=== PATIENT | female | born 1985 | race Caucasian/White ===

== ENCOUNTER → 2019-04-04 | Outpatient (CLI) | payer OTHER ==
[2019-04-04 07:36] LABS: BASO % 0.2 % (0.0-1.0); EOS # 0.1 10^3/uL (0.0-0.5); EOS % 2.4 % (0.0-3.0); HEMATOCRIT 39.5 % (36.0-47.0); HEMOGLOBIN 13.2 g/dl (12.0-15.5); LYMPH # 1.3 10^3/uL (1.5-5.0); LYMPH % 28.2 % (24.0-44.0); MEAN CORPUSCULAR HEMOGLOBIN 30.9 pg (27.0-33.0); MEAN CORPUSCULAR HGB CONC 33.4 g/dl (32.0-36.5); MEAN CORPUSCULAR VOLUME 92.5 fl (80.0-96.0); MONO # 0.4 10^3/uL (0.0-0.8); MONO % 7.8 % (0.0-5.0); NEUTROPHILS # 2.8 10^3/uL (1.5-8.5); NEUTROPHILS % 61.2 % (36.0-66.0); PLATELET COUNT, AUTOMATED 295 10^3/uL (150-450); RED BLOOD COUNT 4.27 10^6/uL (4.00-5.40); WHITE BLOOD COUNT 4.5 10^3/uL (4.0-10.0)
[2019-04-04 07:53] LABS: HEMOGLOBIN A1c 5.7 %
[2019-04-04 08:17] LABS: ALBUMIN 4.1 GM/DL (3.2-5.2); ALT/SGPT 25 U/L (12-78); BILIRUBIN,TOTAL 0.4 MG/DL (0.2-1.0); BLOOD UREA NITROGEN 11 MG/DL (7-18); CALCIUM LEVEL 8.7 MG/DL (8.5-10.1); CARBON DIOXIDE LEVEL 26 MEQ/L (21-32); CHLORIDE LEVEL 108 MEQ/L (98-107); CHOLESTEROL LEVEL 170 MG/DL (<200); CHOLESTEROL RISK RATIO 2.698 (<5); CREATININE FOR GFR 0.84 MG/DL (0.55-1.30); FREE T4 0.83 NG/DL (0.76-1.46); GLOMERULAR FILTRATION RATE > 60.0 (>60); GLUCOSE, FASTING 94 MG/DL (70-100); HDL CHOLESTEROL 63 MG/DL (>40); LDL CHOLESTEROL 95 MG/DL (<100); NON-HDL-C 107 MG/DL; POTASSIUM SERUM 4.3 MEQ/L (3.5-5.1); SODIUM LEVEL 139 MEQ/L (136-145); TOTAL PROTEIN 7.4 GM/DL (6.4-8.2); TRIGLYCERIDES LEVEL 61 MG/DL (<150)
== END ==
LOC: M LAB 07:08
PROVIDERS: ATTEND Physician Assistant
DX: Z13.29 Encounter for screening for other suspected endocrine disorder (principal)

== ENCOUNTER → 2019-11-05 | Outpatient (CLI) | payer OTHER ==
[2019-11-05 11:08] LABS: BASO % 0.3 % (0.0-1.0); EOS # 0.1 10^3/uL (0.0-0.5); HEMATOCRIT 39.5 % (36.0-47.0); HEMOGLOBIN 13.2 g/dl (12.0-15.5); LYMPH # 1.4 10^3/uL (1.5-5.0); LYMPH % 17.6 % (24.0-44.0); MEAN CORPUSCULAR HEMOGLOBIN 31.1 pg (27.0-33.0); MEAN CORPUSCULAR HGB CONC 33.4 g/dl (32.0-36.5); MEAN CORPUSCULAR VOLUME 93.2 fl (80.0-96.0); MONO # 0.5 10^3/uL (0.0-0.8); MONO % 5.7 % (0.0-5.0); NEUTROPHILS % 75.1 % (36.0-66.0); PLATELET COUNT, AUTOMATED 326 10^3/uL (150-450); RED BLOOD COUNT 4.24 10^6/uL (4.00-5.40)
[2019-11-05 12:31] LABS: HEPATITIS C VIRUS ABY INDEX 0.1 INDEX (<0.8); HIV 1&2 SCREEN CENTAUR NEGATIVE (NEGATIVE)
[2019-11-05 13:10] LABS: CHLAMYDIA DNA AMPLIFICATION NEGATIVE (NEGATIVE); GC DNA AMPLIFICATION NEGATIVE (NEGATIVE)
== END ==
LOC: M PLALAB 08:10
PROVIDERS: ATTEND Advanced Practice Midwife
DX: Z34.91 Encounter for supervision of normal pregnancy, unspecified, first trimester (principal)

== ENCOUNTER → 2019-12-04 | Outpatient (CLI) | payer OTHER | LOC: M PLALAB 09:25 | PROVIDERS: ATTEND Obstetrics & Gynecology | DX: Z34.81 Encounter for supervision of other normal pregnancy, first trimester (principal); Z3A.00 Weeks of gestation of pregnancy not specified | CPT/HCPCS: 36415; G0463 ==

== ENCOUNTER → 2019-12-05 | Outpatient (CLI) | payer SELFPAY | LOC: M LABSMTC 14:20 | PROVIDERS: ATTEND Pediatrics | DX: Z20.828 Contact with and (suspected) exposure to other viral communicable diseases (principal) ==

== ENCOUNTER → 2020-01-28 | Outpatient (CLI) | payer OTHER ==
--- NOTE | 2020-01-28 15:26 | REP ---
INDICATION: ANATOMY COMPARISON: None. TECHNIQUE: Transabdominal obstetrical ultrasound with color Doppler evaluation. FINDINGS: Examination demonstrates a single live intrauterine in cephalic presentation. motion is identified by technologist. Placenta is noted anterior and grade 1 without evidence for placenta previa or abruption. Amniotic fluid volume is normal. Cervix measures 3.5 cm in length and appears closed.. Gestational age by LMP 20 weeks 1 day with AYALA 06/15/2020. Gestational age by current measurements 20 weeks 1 day with AYALA 06/15/2020. FHR equals 140 beats per minute. BPD: 4.9 cm there is 20 weeks 5 days HC: 17.4 cm 20 weeks 0 days AC: 14.5 cm 19 weeks 6 days FL: 3.2 cm 19 weeks 6 days HL: 3.1 cm 20 weeks 1 day HC/AC: 1.20 Estimated weight 320 grams (35thpercentile). Anatomical assessment demonstrates normal structures including cranium, choroid plexus, cavum, cerebellum/posterior fossa, facial features, lungs, four-chamber heart/ventricular outflow tracts, diaphragm, stomach, cord insertion/three-vessel cord, kidneys/bladder, and extremities. IMPRESSION: Single live intrauterine in cephalic presentation demonstrating appropriate interval growth. Limited evaluation of the spine. Remainder of the anatomical assessment is complete and normal. <Electronically signed by Aneesh Street > 01/28/20 [id number]
== END ==
LOC: M WHC 13:58
PROVIDERS: ATTEND Obstetrics & Gynecology
DX: Z34.02 Encounter for supervision of normal first pregnancy, second trimester (principal); Z3A.17 17 weeks gestation of pregnancy

== ENCOUNTER → 2020-02-11 | Outpatient (CLI) | payer OTHER | LOC: M WHC 11:57 | PROVIDERS: ATTEND Obstetrics & Gynecology | DX: Z34.92 Encounter for supervision of normal pregnancy, unspecified, second trimester (principal); Z3A.22 22 weeks gestation of pregnancy; Z53.9 Procedure and treatment not carried out, unspecified reason ==

== ENCOUNTER → 2020-03-11 | Outpatient (CLI) | payer OTHER ==
--- NOTE | 2020-03-11 16:26 | REP ---
INDICATION: F/U ANATOMY COMPARISON: 01/28/2020 TECHNIQUE: Transabdominal obstetrical ultrasound with color Doppler evaluation. FINDINGS: Examination demonstrates a single live intrauterine in transverse presentation. motion is identified by technologist. Placenta is noted fundal and grade 1 without evidence for placenta previa or abruption. Amniotic fluid volume is normal. Cervix measures 3.2 cm in length and appears closed.. Gestational age by LMP 26 weeks 2 days with AYALA 06/15/2020. Gestational age by current measurements 26 weeks 4 days with AYALA 06/13/2020. FHR equals 143 beats per minute. Estimated weight 929 grams (42ndpercentile). Anatomical assessment demonstrates normal structures including cranium, facial profile, nose/lips, stomach, bladder, spine, and three-vessel cord. IMPRESSION: Single live intrauterine in transverse lie demonstrating appropriate interval growth. In conjunction with prior examination anatomical assessment is complete and normal. <Electronically signed by Aneesh Street > 03/11/20 [id number]
== END ==
LOC: M WHC 15:19
PROVIDERS: ATTEND Obstetrics & Gynecology
DX: Z36.2 Encounter for other antenatal screening follow-up (principal); Z3A.26 26 weeks gestation of pregnancy; O32.2XX0 Maternal care for transverse and oblique lie, not applicable or unspecified

== ENCOUNTER → 2020-03-22 | Outpatient (REF) | payer SELFPAY | LOC: M LABSMTC 08:35 → EDSTATUS 11:20 | PROVIDERS: ATTEND Pediatrics | DX: Z20.822 Contact with and (suspected) exposure to COVID-19 (principal) ==

== ENCOUNTER → 2020-03-29 | Outpatient (REF) | payer OTHER ==
[2020-03-29 12:26] LABS: HEMATOCRIT 36.3 % (36.0-47.0); MEAN CORPUSCULAR HEMOGLOBIN 30.8 pg (27.0-33.0); MEAN CORPUSCULAR HGB CONC 33.1 g/dl (32.0-36.5); MEAN CORPUSCULAR VOLUME 93.3 fl (80.0-96.0); PLATELET COUNT, AUTOMATED 288 10^3/uL (150-450); RED BLOOD COUNT 3.89 10^6/uL (4.00-5.40); WHITE BLOOD COUNT 11.1 10^3/uL (4.0-10.0)
== END ==
LOC: M PLALAB 08:35
PROVIDERS: ATTEND Advanced Practice Midwife
DX: Z34.92 Encounter for supervision of normal pregnancy, unspecified, second trimester (principal)

== ENCOUNTER → 2020-05-19 | Outpatient (CLI) | payer OTHER ==
--- NOTE | 2020-05-19 10:56 | REP ---
INDICATION: LLE SWELLING, R/O DVT. COMPARISON: None. TECHNIQUE: Left lower extremity duplex venous ultrasound. FINDINGS: The deep veins are anechoic and fully compressible from the groin to the popliteal fossa in the left lower extremity. Color flow imaging is homogeneous. Spectral Doppler interrogation demonstrates intact respiratory variation in flow and normal manual augmentation of flow. There is no evidence of deep vein thrombosis. IMPRESSION: Negative left lower extremity duplex venous ultrasound. No evidence of deep vein thrombosis. <Electronically signed by Fan Mccullough > 05/19/20 [id number]
== END ==
LOC: M RAD 09:56
PROVIDERS: ATTEND Obstetrics & Gynecology
DX: Z34.93 Encounter for supervision of normal pregnancy, unspecified, third trimester (principal); Z36.85 Encounter for antenatal screening for Streptococcus B; M79.89 Other specified soft tissue disorders; Z3A.00 Weeks of gestation of pregnancy not specified

== ENCOUNTER → 2020-05-19 | Outpatient (REF) | payer OTHER | LOC: M SFHCWAGY 17:30 | PROVIDERS: ATTEND Obstetrics & Gynecology | DX: Z34.93 Encounter for supervision of normal pregnancy, unspecified, third trimester (principal); Z36.85 Encounter for antenatal screening for Streptococcus B ==

== ENCOUNTER 2020-05-29 06:55 | Outpatient (CLI) | payer OTHER ==
[~2020-05-29] VITALS: Ht 157.5 cm; Wt 91.4 kg
[2020-05-29 07:08] VITALS: BP 129/79
[2020-05-29] MEDS ORDERED: PRENTAB9 PO (07:35)
--- NOTE | 2020-05-29 09:02 | IPNPDOC ---
Obstetrical Progress Note Date of Service May 29, 2020 Subjective 35yo at 37+4 weeks EGA. Presents for a labor check. Reports frequent, painful uterine contractions. No loss of fluid or vaginal bleeding. Reports regular, frequent movement. ROS: No HUANG, visual changes, RUQ pain, sob, cp, n/v/f/c. complications: severe carpal tunnel, gestational edema PMH: none SH: T&A OB: Term x 1 DIRECTOR OF PHYSIOTHERAPY SERVICES: none Meds: PNV All: NKDA O: Normotensive, normal HR, afebrile Abd: soft,nt,nd, no fundal tenderness SVE: 1 cm, 50%, -3, cephalic, intact, small amount of bloody show; minimal address change clerk several hours. EFM: Cat I / Reactive [place]: irregular contractions. A/P: 35 yo at 37+4 weeks EGA. Latent labor; no evidence of active labor or ROM. Reassuring maternal and status. -Routine third trimester precautions given. -Follow up in office as scheduled. Amanda Alexandra DO FACOG. Objective Vital Signs Date Time Temp Pulse Resp B/P (MAP) Pulse Ox O2 Delivery O2 Flow Rate FiO2 05/29/20 07:08 98.5 99 16 129/79 (96) KENA ALEXANDRA DO May 29, 2020 09:02
== END 2020-05-29 08:57 | disposition home or self-care (01) ==
LOC: M LDO 06:55
PROVIDERS: ATTEND Obstetrics & Gynecology
DX: O47.1 False labor at or after 37 completed weeks of gestation (principal); Z3A.37 37 weeks gestation of pregnancy; O12.03 Gestational edema, third trimester
CPT/HCPCS: 59025; G0378; G0463

== ENCOUNTER 2020-06-12 10:02 | Inpatient (IN) | payer OTHER ==
[~2020-06-12] VITALS: Ht 157.5 cm; Wt 93.2 kg
[2020-06-12] VITALS (13 sets, daily range): BP systolic 110–144; BP diastolic 64–84
[~2020-06-12 10:02] MED LIST: PRENTAB9 PO; miSOPROStol 50MCG 1/2 TABLET PO SCH
[2020-06-12 12:48] LABS: HEMATOCRIT 34.5 % (36.0-47.0); HEMOGLOBIN 11.3 g/dl (12.0-15.5); MEAN CORPUSCULAR HEMOGLOBIN 28.7 pg (27.0-33.0); MEAN CORPUSCULAR HGB CONC 32.8 g/dl (32.0-36.5); MEAN CORPUSCULAR VOLUME 87.6 fl (80.0-96.0); PLATELET COUNT, AUTOMATED 252 10^3/uL (150-450); RED BLOOD COUNT 3.94 10^6/uL (4.00-5.40); WHITE BLOOD COUNT 11.5 10^3/uL (4.0-10.0)
[2020-06-12] MEDS: miSOPROStol 50MCG 1/2 TABLET PO SCH ×2 (16:06→20:00)
--- NOTE | 2020-06-12 18:23 | HPEPDOC ---
Obstetrical History & Physical General Date of Admission Jun 12, 2020 at 10:02 History of Present Illness 35yo at 39w4d presents for IOL. Chief Complaint: Induction of labor Information Provided By: Patient Age: 35 : 2 Livin Care Care: Good Care Dating Final EDC: Jun 15, 2020 Final EDC by: LMP LMP: Aug 31, 2019 EGA at Admission: 39 Past Medical History Past Obstetrical History : Past Obstetrical History: Multigravida Date of Delivery: Aug 10, 2016 Type of Delivery: Spontaneous Vaginal Del. Sex of : Male Complications: No COMPENSATION AND HRIS ANALYST History: Abnormal Pap Past Medical History Surgical History: Tonsilectomy Family History Significant Family History: Hypertension Social History Marital Status: Family situation: Spouse/partner home Psychosocial History: No pertinent psych hx * Smoker: non-smoker Alcohol: Denies Drugs: denies Allergies Coded Allergies: No Known Allergies (Unverified , 03/31/20) Medications Scheduled No.137/Iron/Folic Acd ( Vitamin Tablet) 1 Each Tablet, 1 TAB PO DAILY Physical Examination Physical Examination GENERAL: Alert and oriented times three. BREAST: . ABDOMEN: Gravid and non-tender to touch. FETUS: Is vertex (VTX) by sterile vaginal examination (SVE), fetus is vertex (VTX) by Wilbur. HEART RATE: Regular rate and rhythm. LUNGS: Clear to auscultation (CTA). Vital Signs/I&O Vital Signs Date Time Temp Pulse Resp B/P (MAP) Pulse Ox O2 Delivery O2 Flow Rate FiO2 06/12/20 17:05 82 18 133/75 (94) 06/12/20 14:13 97.4 Laboratory Data 24H LABS Laboratory Tests 2 06/12/20 10:19: Serology Scanned Report Hepatitis B Testing 06/12/20 11:59: Nucleated Red Blood Cells % (auto) 0.0 CBC/BMP Laboratory Tests 06/12/20 11:59 Pertinent Laboratoy Data Blood Type: B+ HIV: Negative Hepatitis B: Negative Hepatitis C: Negative Rapid Plasma Reagin: Nonreactive Rubella: Immune Chlamydia/Gonorrhea: Negative Group B Streptococcus: Negative Glucose Tolerance Test: 102 Anatomy Ultrasound Placenta Location: Fundal Normal Anatomy: Yes Placenta Previa: No Vaginal Examination Dilation: 2cm Effacement: 70% Station: -3 Cervical Consistency: Medium Cervical Position: Posterior Presentation: Cephalic presentation Assessment Variability: Moderate Accelerations: Positive Decelerations: None Tocometer Contractions: No Assessment/Plan Assessment 35yo at 39w4d here for IOL Reassuring status Plan Admit and orient. Reporting Analyst and consent. Diet: regular. Group B Streptococcus (GBS) negative. Labs and intravenous (IV) per unit protocol. Counseled on Pitocin and induction of labor (IOL). Anticipate normal spontaneous delivery (). C-S as appropriate. BETTY ZURITA MD. Jun 12, 2020 18:23
[2020-06-12] MEDS ORDERED: OXYTOCIN DRIP 30 UNITS in IV 1 EA IV SCH (23:15)
[2020-06-12] MEDS: LR 1,000 ML IV SCH (23:44)
[2020-06-13] VITALS (90 sets, daily range): BP systolic 83–145; BP diastolic 47–86
[2020-06-13] MEDS ORDERED: CALCIUM CARBONATE 500 MG CHEW U/D PO ONE (00:40)
[2020-06-13] MEDS ORDERED: FENTANYL 2MCG/ML ROPIVACAINE 0.2% IN 0.9% NACL 100ML IVBAG As Ordered ONE (01:07)
[2020-06-13] MEDS ORDERED: EPIDURAL/PCA KEYS XX PRN (01:19)
[2020-06-13] MEDS ORDERED: NALOXONE INJ 0.4MG/1ML VIAL (J2310 PER 1MG) IV PRN (01:19)
[2020-06-13] MEDS ORDERED: LACTATED RINGER'S 1000 ML IV PRN (01:19)
[2020-06-13] MEDS ORDERED: REFRIGERATOR IV KEYS XX PRN (01:19)
[2020-06-13] MEDS ORDERED: ONDANSETRON 4MG/2ML VIAL IV PRN (01:19)
[2020-06-13] MEDS ORDERED: diphenhydrAMINE 50MG/ML VIAL (J1200) IV PRN (01:19)
[2020-06-13] MEDS ORDERED: EPIDURAL COMMENT XX SCH (01:19)
[2020-06-13] MEDS: FENTANYL/ROPIVACAINE/NACL BAG 100 ML EPIDURAL SCH ×3 (02:42→19:58)
[2020-06-13] MEDS: ePHEDrine SULFATE 25 MG/5 ML(5MG/ML) SYRINGE IV PRN ×4 (03:14→13:12)
[2020-06-13] MEDS: LR 1,000 ML IV SCH ×3 (09:49→16:06)
--- NOTE | 2020-06-13 12:00 | IPNPDOC ---
Obstetrical Progress Note Date of Service Jun 13, 2020 Subjective Comfortable. Feeling nauseous. Objective Vital Signs Date Time Temp Pulse Resp B/P (MAP) Pulse Ox O2 Delivery O2 Flow Rate FiO2 06/13/20 09:42 98.8 85 18 99/59 (72) Assessment Heart Rate (FHR): 190 Variability: Moderate Heart Patterns: Tachycardia Heart Rate Tracing: Category II Sterile Vaginal Examination Dilation: 4 cm (AROM clear) Effacement (%): 70% Station: -2 Cervical Consistency: Soft Cervical Position: Anterior Postion/Presentation: Cephalic presentation Assessment and Plan Age: 35 : 2 Livin Anticipate: Vaginal Delivery Additional Comments pitocin at 16mU, will d/c due to cat II tracing with tachycardia BETTY ZURITA MD. Jun 13, 2020 12:00
--- NOTE | 2020-06-13 22:46 | DNPDOC ---
[facility] Delivery Note Delivery Note DATE OF DELIVERY: 06/13/2020 TIME OF : 2210 GENDER: Female APGARS: 9 and 9. WEIGHT: 37509 grams or 7 pounds 8ounces. LACERATIONS: 1MLL ANESTHESIA: epidural ESTIMATED BLOOD LOSS: 300ml COUNTS: 5 laparotomy sponges accounted for prior to after delivery. 1 sharps removed from delivery field. DELIVERY NOTE: On on 06/13/2020 a 35-year-old 2, now para 2 spontaneous had a vaginal delivery of a liveborn female infant Apgars 9 and 9 with weight 3410 g or 7 lbs. 8 oz. Head was delivered occiput anterior (OA), followed by delivery of the shoulders and corpus. Infant was handed to mom with a good cry. Cord was clamped times two and was cut by support person under my direction. Placenta was then drained and delivered grossly intact. A premixed bag of 500 mL of normal saline with 30 units of Pitocin was then bolused along with uterine massage until the uterus was firm. On inspection there was a 1MLL that was repaired with 3-0 Vicryl . On reinspection, cervix, vagina, perineum was grossly intact and hemostatic. Mom and baby in recovery on stable condition. BETTY ZURITA MD. Jun 13, 2020 22:46
[2020-06-13] MEDS ORDERED: MEASLES,MUMPS,RUBELLA VACCINE INJ (MMR-II) (90707) SC SCH (22:50)
[2020-06-13] MEDS ORDERED: IBUPROFEN 600MG TAB PO PRN (22:50)
[2020-06-13] MEDS ORDERED: MOM 30ML SUSPENSION UDC PO PRN (22:50)
[2020-06-13] MEDS ORDERED: ACETAMINOPHEN TAB 650MG DOSE (2X325MG) PO PRN (22:50)
[2020-06-13] MEDS ORDERED: METHYLERGONOVINE MALEATE 0.2 MG TAB PO PRN (22:50)
[2020-06-13] MEDS ORDERED: DIBUCAINE 1% OINTMENT 30GM TOP PRN (22:50)
[2020-06-13] MEDS ORDERED: OXYTOCIN DRIP 30 UNITS in IV 1 EA IV SCH (22:50)
[2020-06-13] MEDS ORDERED: ANUSOL HC CREAM 30GM TOP PRN (22:50)
[2020-06-13] MEDS ORDERED: DOCUSATE SODIUM 100MG CAPSULE PO PRN (22:50)
[2020-06-13] MEDS ORDERED: RHOGAM 300 MCG (1500 IU) INJ (J2790) IM SCH (22:50)
[2020-06-13] MEDS ORDERED: ONDANSETRON 4 MG ORAL DISINTEGRATING TAB PO ONE (23:00)
[2020-06-13] MEDS: IBUPROFEN 800 MG TAB PO PRN (23:50)
[2020-06-13] MEDS: ACETAMINOPHEN 500 MG TAB PO PRN (23:51)
[2020-06-14 00:15] VITALS: BP 111/62
[2020-06-14 06:00] VITALS: BP 100/58
--- NOTE | 2020-06-14 07:14 | IPNPDOC ---
Progress Note Date of Service: Jun 14, 2020 Day#: 1 Progress Note SUBJECT: Doing well without complaints. Ambulating, voiding and pain is well-c ontrolled. Reports minimal lochia. OBJECTIVE: VITAL SIGNS: Within normal limits, afebrile. Alert and oriented times three. Abdomen: Fundus firm at U-2. Soft, NTTP. Ext: neg calf tenderness. ASSESSMENT: day #1 status post . Recovering in stable condition. PLAN: 1. Continue routine care 2. Discharge plans for tomorrow VS, I&O, 24H, Fishbone Vital Signs/I&O Vital Signs Date Time Temp Pulse Resp B/P (MAP) Pulse Ox O2 Delivery O2 Flow Rate FiO2 06/14/20 06:00 98.2 63 16 100/58 (72) 06/14/20 00:15 97 Room Air I&O- Last 24 Hours up to 6 AM 06/14/20 06:00 Intake Total 6098 ml Output Total 7150 ml Balance -1052 ml BETTY ZURITA MD. Jun 14, 2020 07:14
[2020-06-14] MEDS: PRENATAL VITAMINS CHEWABLE TABLET PO SCH (09:21)
[2020-06-14] MEDS: IBUPROFEN 800 MG TAB PO PRN ×2 (09:22→17:46)
[2020-06-14] MEDS: ACETAMINOPHEN 500 MG TAB PO PRN ×2 (15:09→21:50)
[2020-06-14 18:00] VITALS: BP 134/81
[2020-06-15] MEDS: IBUPROFEN 800 MG TAB PO PRN ×2 (02:35→11:06)
[2020-06-15] MEDS: ACETAMINOPHEN 500 MG TAB PO PRN (05:34)
[2020-06-15 06:00] VITALS: BP 114/71
[2020-06-15] MEDS: PRENATAL VITAMINS CHEWABLE TABLET PO SCH (09:05)
[2020-06-15] MEDS ORDERED: IBUP80TA PO (09:18)
[2020-06-15] MEDS ORDERED: ACET-683 PO (09:18)
== END 2020-06-15 12:50 | disposition home or self-care (01) | DRG 807 ==
LOC: M LDI 10:02 → M OBS 06-14 00:11
PROVIDERS: ADMIT Obstetrics & Gynecology; ATTEND Obstetrics & Gynecology
PROC: 3E033VJ Introduction of Other Hormone into Peripheral Vein, Percutaneous Approach (ICD-10-PCS; 2020-06-12)
PROC: 10E0XZZ Delivery of Products of Conception, External Approach (ICD-10-PCS; principal; 2020-06-13)
PROC: 0KQM0ZZ Repair Perineum Muscle, Open Approach (ICD-10-PCS; 2020-06-13)
PROC: 10907ZC Drainage of Amniotic Fluid, Therapeutic from Products of Conception, Via Natural or Artificial Opening (ICD-10-PCS; 2020-06-13)
DX: O70.0 First degree perineal laceration during delivery (principal); Z37.0 Single live birth; Z3A.39 39 weeks gestation of pregnancy